=== PATIENT | female | born 1965 | race Caucasian/White ===

== ENCOUNTER → 2021-12-23 | Outpatient (CLI) | payer OTHER ==
[2021-12-23 17:43] LABS: BASOPHILS ABSOLUTE AUTO 0.06 K/mm3 (0.00-0.23); BASOPHILS PERCENT AUTO 1 % (0-2); EOSINOPHILS ABSOLUTE AUTO 0.14 K/mm3 (0.00-0.68); EOSINOPHILS PERCENT AUTO 2 % (0-6); Hematocrit 47.7 % (33.0-51.0); Hemoglobin 16.3 g/dL (11.5-16.0); IMMATURE GRAN ABSOLUTE AUTO 0.03 K/mm3 (0.00-0.10); IMMATURE GRAN PERCENT AUTO 0 % (0-1); LYMPHOCYTES ABSOLUTE AUTO 3.41 K/mm3 (0.84-5.20); LYMPHOCYTES PERCENT AUTO 38 % (21-46); MONOCYTES PERCENT AUTO 8 % (4-13); Mean Corpuscular HGB 30.8 pg (26.0-34.0); Mean Corpuscular HGB Conc 34.2 g/dL (31.5-36.5); Mean Corpuscular Volume 90 fL (80-100); Mean Platelet Volume 10.1 fL (9.1-12.4); NEUTROPHILS ABSOLUTE AUTO 4.62 K/mm3 (1.96-9.15); NEUTROPHILS PERCENT AUTO 52 % (41-73); Platelet Count 287 K/mm3 (150-400); RDW Coefficient Variation 11.9 % (11.7-14.2); Red Blood Cell Count 5.29 M/mm3 (3.80-5.20); White Blood Cell Count 8.96 K/mm3 (4.00-11.30)
[2021-12-23 18:13] LABS: Albumin, Blood 3.7 g/dL (3.4-5.0); Albumin/Globulin Ratio 1.1 (0.8-1.8); Bilirubin, Total 0.5 mg/dL (0.1-1.0); Bun/Creatinine Ratio 32.3 (12.0-20.0); Calcium, Blood 9.2 mg/dL (8.5-10.1); Creatinine, Blood 0.34 mg/dL (0.40-1.00); Globulin, Blood 3.5 g/dL (2.2-4.0); Potassium, Blood 3.8 mmol/L (3.5-5.5); Thyroid Stimulating Hormone 4.65 uIU/mL (0.360-4.800); Total Protein, Blood 7.2 g/dL (6.4-8.2)
== END | disposition home or self-care (01) ==
LOC: LAB SHORT 09:05 → LAB 09:05
PROVIDERS: Nurse Practitioner Family
DX: G47.00 Insomnia, unspecified (principal); M79.7 Fibromyalgia
CPT/HCPCS: 80053; 83036; 84443; 85025

== ENCOUNTER 2022-09-20 11:04 | Emergency (ER) | payer OTHER ==
[~2022-09-20] VITALS: Ht 162.6 cm; Wt 88.5 kg
== END 2022-09-20 12:38 | disposition home or self-care (01) ==
LOC: ER 11:04
DX: M25.512 Pain in left shoulder (principal); E11.9 Type 2 diabetes mellitus without complications
CPT/HCPCS: 99283

== ENCOUNTER 2023-06-01 12:46 | Emergency (ER) | payer OTHER ==
[~2023-06-01] VITALS: Ht 162.6 cm; Wt 86.2 kg
[2023-06-01 12:58] VITALS: BP 140/68
[2023-06-01 14:11] LABS: BASOPHILS ABSOLUTE AUTO 0.06 K/mm3 (0.00-0.23); BASOPHILS PERCENT AUTO 1 % (0-2); EOSINOPHILS ABSOLUTE AUTO 0.15 K/mm3 (0.00-0.68); EOSINOPHILS PERCENT AUTO 2 % (0-6); Hematocrit 44.5 % (33.0-51.0); Hemoglobin 15.2 g/dL (11.5-16.0); IMMATURE GRAN ABSOLUTE AUTO 0.07 K/mm3 (0.00-0.10); IMMATURE GRAN PERCENT AUTO 1 % (0-1); LYMPHOCYTES ABSOLUTE AUTO 2.81 K/mm3 (0.84-5.20); LYMPHOCYTES PERCENT AUTO 30 % (21-46); MONOCYTES PERCENT AUTO 8 % (4-13); Mean Corpuscular HGB 30.7 pg (26.0-34.0); Mean Corpuscular HGB Conc 34.2 g/dL (31.5-36.5); Mean Corpuscular Volume 90 fL (80-100); Mean Platelet Volume 10.1 fL (9.1-12.4); NEUTROPHILS ABSOLUTE AUTO 5.47 K/mm3 (1.96-9.15); NEUTROPHILS PERCENT AUTO 59 % (41-73); Platelet Count 270 K/mm3 (150-400); RDW Standard Deviation 39.4 fL (35.1-46.3); Red Blood Cell Count 4.95 M/mm3 (3.80-5.20); White Blood Cell Count 9.26 K/mm3 (4.00-11.30)
[2023-06-01 14:22] LABS: Albumin, Blood 3.2 g/dL (3.4-5.0); Albumin/Globulin Ratio 0.8 (0.8-1.8); Bilirubin, Total 0.6 mg/dL (0.1-1.0); Creatinine, Blood 0.57 mg/dL (0.40-1.00); Globulin, Blood 3.8 g/dL (2.2-4.0); Potassium, Blood 4.3 mmol/L (3.5-5.5)
== END 2023-06-01 16:28 | disposition left against medical advice (07) ==
LOC: ER 12:46
PROVIDERS: Student in an Organized Health Care Education/Training Program
DX: R11.2 Nausea with vomiting, unspecified (principal); R10.9 Unspecified abdominal pain; Z53.29 Procedure and treatment not carried out because of patient's decision for other reasons
CPT/HCPCS: 74018; 80053; 83690; 85025; 99282-25

== ENCOUNTER 2023-06-27 19:52 | Emergency (ER) | payer OTHER ==
[~2023-06-27] VITALS: Ht 162.6 cm; Wt 102.1 kg
[2023-06-27 20:36] LABS: BASOPHILS ABSOLUTE AUTO 0.06 K/mm3 (0.00-0.23); BASOPHILS PERCENT AUTO 0 % (0-2); EOSINOPHILS ABSOLUTE AUTO 0.24 K/mm3 (0.00-0.68); EOSINOPHILS PERCENT AUTO 2 % (0-6); Hematocrit 47.6 % (33.0-51.0); Hemoglobin 15.9 g/dL (11.5-16.0); IMMATURE GRAN ABSOLUTE AUTO 0.26 K/mm3 (0.00-0.10); IMMATURE GRAN PERCENT AUTO 2 % (0-1); LYMPHOCYTES ABSOLUTE AUTO 1.63 K/mm3 (0.84-5.20); LYMPHOCYTES PERCENT AUTO 11 % (21-46); MONOCYTES ABSOLUTE AUTO 1.08 K/mm3 (0.16-1.47); MONOCYTES PERCENT AUTO 7 % (4-13); Mean Corpuscular HGB 29.2 pg (26.0-34.0); Mean Corpuscular HGB Conc 33.4 g/dL (31.5-36.5); Mean Corpuscular Volume 87 fL (80-100); Mean Platelet Volume 9.6 fL (9.1-12.4); NEUTROPHILS ABSOLUTE AUTO 11.43 K/mm3 (1.96-9.15); NEUTROPHILS PERCENT AUTO 78 % (41-73); Platelet Count 303 K/mm3 (150-400); RDW Coefficient Variation 12.4 % (11.7-14.2); RDW Standard Deviation 39.4 fL (35.1-46.3); Red Blood Cell Count 5.45 M/mm3 (3.80-5.20)
[2023-06-27 20:56] LABS: Albumin, Blood 2.7 g/dL (3.4-5.0); Albumin/Globulin Ratio 0.6 (0.8-1.8); Bilirubin, Total 0.8 mg/dL (0.1-1.0); Bun/Creatinine Ratio 26.8 (12.0-20.0); Calcium, Blood 9.5 mg/dL (8.5-10.1); Creatinine, Blood 0.56 mg/dL (0.40-1.00); Globulin, Blood 4.7 g/dL (2.2-4.0); Potassium, Blood 4.6 mmol/L (3.5-5.5); Total Protein, Blood 7.4 g/dL (6.4-8.2)
[2023-06-27 22:22] LABS: Magnesium, Blood 1.9 mg/dL (1.6-2.4)
[2023-06-27 22:59] LABS: Source, Urine Clean Catch
[2023-06-27 23:02] LABS: Blood, Urine Neg (Neg); Glucose Qualitative, Urine 2+ (Neg); Ketones, Urine 4+ (Neg); Leukocyte Esterase, Urine 1+ (Neg); Nitrite, Urine Neg (Neg); Protein, Urine 2+ (Neg); Specific Gravity, Urine 1.025 (1.003-1.022); Urobilinogen, Urine 3+ (Normal)
[2023-06-27 23:09] LABS: Appearance, Urine Hazy (Clear); Bilirubin, Urine 2+ (Neg); Color, Urine Yellow (P-Yellow)
[2023-06-27 23:10] LABS: Amorphous Light (0-Heavy); Bacteria Mod /hpf; Red Blood Cells, Urine 0-2 /hpf (0-2); Squamous Epithelial Cells Mod /hpf (Few)
[2023-06-28] MEDS ORDERED: CEPH500 PO (01:04)
[2023-06-28] MEDS ORDERED: OXAYDO5 M1 PO (01:04)
[2023-06-28 01:16] VITALS: BP 136/64
== END 2023-06-28 01:31 | disposition home or self-care (01) ==
LOC: ER 19:52
PROVIDERS: Student in an Organized Health Care Education/Training Program
DX: C80.1 Malignant (primary) neoplasm, unspecified (principal); C78.7 Secondary malignant neoplasm of liver and intrahepatic bile duct; N39.0 Urinary tract infection, site not specified; R11.2 Nausea with vomiting, unspecified; K59.00 Constipation, unspecified; E86.0 Dehydration; D72.829 Elevated white blood cell count, unspecified; E11.9 Type 2 diabetes mellitus without complications
CPT/HCPCS: 80053; 81001; 83690; 83735; 85025; 87086; 96361; 96365; 96375; 99284-25; A9270; J0696; J1170; J2405; J3010; J7030

== ENCOUNTER 2023-07-01 11:40 | Inpatient (IN) | payer OTHER ==
[~2023-07-01] VITALS: Ht 162.6 cm; Wt 93.3 kg
[~2023-07-01 11:40] MED LIST: CEPH500 PO; OXAYDO5 M1 PO
[2023-07-01 12:04] LABS: BASOPHILS ABSOLUTE AUTO 0.08 K/mm3 (0.00-0.23); BASOPHILS PERCENT AUTO 0 % (0-2); EOSINOPHILS ABSOLUTE AUTO 0.01 K/mm3 (0.00-0.68); EOSINOPHILS PERCENT AUTO 0 % (0-6); Hematocrit 47.6 % (33.0-51.0); IMMATURE GRAN ABSOLUTE AUTO 0.68 K/mm3 (0.00-0.10); IMMATURE GRAN PERCENT AUTO 3 % (0-1); LYMPHOCYTES ABSOLUTE AUTO 1.82 K/mm3 (0.84-5.20); LYMPHOCYTES PERCENT AUTO 7 % (21-46); MONOCYTES ABSOLUTE AUTO 1.54 K/mm3 (0.16-1.47); MONOCYTES PERCENT AUTO 6 % (4-13); Mean Corpuscular HGB 29.4 pg (26.0-34.0); Mean Corpuscular HGB Conc 33.6 g/dL (31.5-36.5); Mean Corpuscular Volume 88 fL (80-100); Mean Platelet Volume 10.6 fL (9.1-12.4); NEUTROPHILS ABSOLUTE AUTO 21.93 K/mm3 (1.96-9.15); NEUTROPHILS PERCENT AUTO 84 % (41-73); NRBC ABSOLUTE 0.03 K/mm3 (0.00-0.02); NRBC Auto 0.1 /100 WBC (0.0-0.2); Platelet Count 233 K/mm3 (150-400); RDW Coefficient Variation 12.8 % (11.7-14.2); RDW Standard Deviation 39.8 fL (35.1-46.3); Red Blood Cell Count 5.44 M/mm3 (3.80-5.20); White Blood Cell Count 26.06 K/mm3 (4.00-11.30)
[2023-07-01 12:29] LABS: Albumin, Blood 2.6 g/dL (3.4-5.0); Albumin/Globulin Ratio 0.6 (0.8-1.8); Bilirubin, Total 0.7 mg/dL (0.1-1.0); Bun/Creatinine Ratio 27.8 (12.0-20.0); Calcium, Blood 9.1 mg/dL (8.5-10.1); Creatinine, Blood 1.26 mg/dL (0.40-1.00); Globulin, Blood 4.5 g/dL (2.2-4.0); Potassium, Blood 4.2 mmol/L (3.5-5.5); Total Protein, Blood 7.1 g/dL (6.4-8.2)
[2023-07-01 12:44] LABS: Influenza A, PCR NEGATIVE (NEGATIVE); Influenza B, PCR NEGATIVE (NEGATIVE); Resp Syncytial Virus, PCR NEGATIVE (NEGATIVE); SARS-Cov-2 (COVID-19) PCR, MMC NEGATIVE (NEGATIVE)
[2023-07-01 14:41] LABS: Base Excess Venous -8.5 mmol/L; Bicarbonate Venous 18.2 mmol/L (24.0-30.0); PCO2 Venous 34.2 mmHg (38-42); pH Blood Venous 7.32 (7.34-7.37)
[2023-07-01 16:48] LABS: Glucose, Blood 644 mg/dL (70-99)
--- NOTE | 2023-07-01 18:22 | NUR ---
SHIFT SUMMARY: ASSUMED CARE OF PATIENT UPON HER ARRIVAL FROM ED AT 1550. WAS GIVEN DILAUDID PRIOR TO ARRIVAL IN PCU SO IS A BIT LETHARGIC, IS AROUSEABLE TO SPEECH. CBG CHECKED JUST AFTER ARRIVAL, WAS >500; RE-CHECK BY LAB WAS 644. DR. GOMEZ NOTIFIED, ORDER RECEIVED FOR EXTRA 15 UNITS OF GLARGINE INSULIN. PT STATED PAIN IS "OK AT THE MOMENT." WAS PLACED ON O2 @ 2 L/MIN NC BY ED RN AFTER DILAUDID, RR ON ARRIVAL WAS 13. TELEMETRY SHOWS SINUS TACH AT 110. IVF INFUSING. SPOUSE AND SON AT BEDSIDE. SPOKE TO PALLIATIVE CARE RN Joe BERKOWITZ, ASKED HIM TO CHECK IN WITH PATIENT AND FAMILY PT HAS NEW CANCER DIAGNOSIS.
[2023-07-01 18:24] LABS: Potassium, Blood 3.7 mmol/L (3.5-5.5)
[2023-07-01 20:39] LABS: Glucose, Blood 578 mg/dL (70-99)
[2023-07-01 21:15] VITALS: BP 130/70
[2023-07-02] VITALS (7 sets, daily range): BP systolic 129–145; BP diastolic 65–76
[2023-07-02 00:25] LABS: Glucose, Blood 548 mg/dL (70-99)
[2023-07-02 04:10] LABS: Hematocrit 42.5 % (33.0-51.0); Hemoglobin 14.4 g/dL (11.5-16.0); Mean Corpuscular HGB 29.1 pg (26.0-34.0); Mean Corpuscular HGB Conc 33.9 g/dL (31.5-36.5); Mean Corpuscular Volume 86 fL (80-100); Mean Platelet Volume 10.2 fL (9.1-12.4); NRBC ABSOLUTE 0.02 K/mm3 (0.00-0.02); NRBC Auto 0.1 /100 WBC (0.0-0.2); Platelet Count 165 K/mm3 (150-400); RDW Coefficient Variation 12.5 % (11.7-14.2); RDW Standard Deviation 39.1 fL (35.1-46.3); Red Blood Cell Count 4.94 M/mm3 (3.80-5.20); White Blood Cell Count 21.89 K/mm3 (4.00-11.30)
[2023-07-02 04:42] LABS: Bun/Creatinine Ratio 39.8 (12.0-20.0); Calcium, Blood 8.5 mg/dL (8.5-10.1); Creatinine, Blood 1.08 mg/dL (0.40-1.00); Potassium, Blood 3.3 mmol/L (3.5-5.5)
--- NOTE | 2023-07-02 06:25 | NUR ---
SHIFT SUMMARY PT IS HERE WITH N/V, HYPERGLYCEMIA, AND AN LORE. BLOOD GLUCOSE CHECKED Q4H THIS SHIFT AND RESULTS CALLED TO THE PROVIDER EACH TIME FOR ADDITIONAL INSTRUCTION. AT 0000 AND 0400, AN ADDITIONAL 5 UNITS OF SHORT ACTING INSULIN WAS ORDERED TO ASSIST IN BRINGING DOWN THE PT'S BLOOD SUGAR. PT HAS BEEN NAUSEOUS AND HAS VOMITED TWICE THIS SHIFT, THE SECOND TIME OCCURRING AT 0620 THIS AM WITH 400 ML OF EMESIS. BOTH ZOFRAN AND REGLAN GIVEN THIS SHIFT, BUT PT STILL HAS BOUTS OF NAUSEA W/EMESIS REGARDLESS. PT'S OXYGEN SATURATION DECREASED DURING THE CLINICAL RESEARCH ADMINISTRATOR (LOW TO MID 80'S) AND NALINI WITH RT WAS ASKED TO COME AND ASSESS THE PT. NALINI W/RT STATED THE PT'S LUNGS SOUNDED CRACKLY AND ASKED TO REPOSITION THE PT WELL PROVIDE AN IS. PT'S O2 SATS DID IMPROVE AFTER REPOSITIONING THE PT (LOW 90'S) AND LOWERING THE BED TO ALLOW FOR BETTER BREATHING. HOWEVER, USING THE IS DID MAKE THE PT COUGH AND GAG. IV FLUIDS WERE STOPPED BY THIS RN FOR THE TIME BEING AND THIS RN SPOKE WITH SUHAS BRADY ABOUT THE PT'S CONDITION. THIS RN CONTACTED DR. SALAZAR AND REQUESTED A CXR ONE HAD NOT YET BEEN PERFORMED. RESULTS ARE PENDING. PT'S PAIN MEDICATED PER EMAR AND ASIDE FROM HER O2 SATURATION, HER VITAL SIGNS HAVE BEEN STABLE. PT ABLE TO STAND AND PIVOT TO THE BEDSIDE COMMODE, BUT PT HAS HAD MINIMAL URINE OUTPUT THIS SHIFT. BED IS IN LOWEST POSITION, CALL LIGHT IS WITHIN REACH.
--- NOTE | 2023-07-02 12:57 | NUR ---
Brief supportive visit this afternoon to establish rapport. Pt resting in bed upon arrival. Pt's son, daughter in law, and grandchildren at bedside. Pt reporting 7/10 pain in her back and is having some mild nausea. Brief review of plan of care. Pt and family express appreciation. Spoke with Primary RN Anu and relayed Pt's pain and nausea. Palliative Care will remain available
--- NOTE | 2023-07-02 18:18 | NUR ---
SHIFT SUMMARY PT IS VERY DROWSY BUT RESPONDS TO VERBAL STIMULI AND IS ORIENTED X4. SHE HAS HAD HER SON AND [id number] AT THE BEDSIDE ALL DAY AND THEY HAVE BEEN VERY HELPFUL WITH CARE. THEY HAVE BEEN HELPING WITH ORAL CARE, TURNS, POSITIONING, HELPING WITH EXPRESSING THE PT'S NEEDS THE PT HAS HAD NAUSEA AND VOMITING ALL DAY AND HAS BEEN MEDICATED PER EMAR. SHE AHS HAD PAIN IN HER BACK, ABD, AND THROAT, WHICH SHE HAS RECIEVED DILAUDID 0.5MG TWICE THIS SHIFT. TO HELP W/ HYDRATION THE PT IS RECIEVING NS AT 75ML'S/HR. OVERNIGHT THEY WERE CONCERNED W/ FLUID OVERLOAD SO HER FLUIDS WERE STOPPED ABOUT 0500 AND RESUMED THIS AFTERNOON. SHE HAS SUGAR FREE POPSICLES IN THE FRIDGE THAT SHE HAS BEEN ABLE TO TOLERATE AT TIMES. THE PT HAS BEEN TITRATED DOWN FROM 4L NC TO 2L NC. SP02 >90% W/ ACTIVITY HER SP02 DOES DROP SLIGHTLY BUT SHE DOES RECOVER AFTER ABOTU A MINUTE. ON TELE SHE IS SR/ST 90'S-100'S. SHE IS A 1P SBA TO THE CHAIR OR BSC. PT WAS CHANGED TO A Q6 CBG. BLOOD SUGARS IN THE 200'S. WE WILL BE REEVALUATING HER SWALLOW TOMORROW AND DR. GOMEZ HAS TALKED ABOUT FINDIND GI AT ANOTHER HOSPITAL IF THERE ARE NO IMPROVMENTS. THE PT WAS STARTED ON PROTONIX THIS SHIFT. SEE NOTES FOR ANY UPDATES.
--- NOTE | 2023-07-02 21:13 | NUR ---
ASSUMPTION OF CARE NOTE AFTER RECEIVING REPORT FROM FAHAD DENNY, THIS RN ASSUMED CARE AT APPROX 1915. PATIENT SLEEPING DURING INITIAL ENCOUNTER, EASILY AROUSABLE TO VERBAL STIMULI. REMAINS DROWSY, LETHARGIC. FAMILY AT BEDSIDE ASSISTING WITH CARE NEEDED. PATIENT IS ABLE TO AMBULATE TO BEDSIDE COMMODE WITH 1P STAND BY ASSIST. IS CURRENTLY SITTING IN RECLINER CHAIR. EGG CRATE MATTRESS PAD PLACED ON BED FOR INCREASED COMFORT. VSS. TELEMETRY SHOWING SINUS TACH 90's-100's. BP STABLE. DENIES CHEST PAIN OR PRESSURE. IS CURRENTLY ON 2L VIA NASAL CANNULA, SATS >92%. IS ABLE TO AMBULATE WITHOUT ADDITIONAL SUPPLEMENTAL OXYGEN. DOES EXPERIENCE DYSPNEA WITH MOBILITY, ABLE TO RECOVER WITH REST. REPORTS MILD NAUSEA AT THIS TIME, IS ABLE TO TOLERATE A POPSICLE AND ICE CHIPS. VOIDING DARK JAVIER URINE. CALL LIGHT IN REACH.
--- NOTE | 2023-07-03 02:44 | NUR ---
0009 - SPOKE WITH DR. PARIKH REGARDING PT WITH INCREASING PAIN AND NAUSEA. NO PRNS AVAILABLE. RECEIVED ORDER FOR INCREASE IN IV PAIN MEDICATIONS AND DIFFERENT IV NAUSEA MEDICATION. SEE EMAR FOR DETAILS. PRIMARY RN FRITZ DEL CID.
[2023-07-03 03:53] VITALS: BP 115/84
[2023-07-03 04:15] LABS: Hematocrit 44.4 % (33.0-51.0); Hemoglobin 14.7 g/dL (11.5-16.0); Mean Corpuscular HGB 29.3 pg (26.0-34.0); Mean Corpuscular HGB Conc 33.1 g/dL (31.5-36.5); Mean Corpuscular Volume 88 fL (80-100); Mean Platelet Volume 10.4 fL (9.1-12.4); NRBC ABSOLUTE 0.02 K/mm3 (0.00-0.02); NRBC Auto 0.1 /100 WBC (0.0-0.2); Platelet Count 132 K/mm3 (150-400); RDW Coefficient Variation 12.8 % (11.7-14.2); RDW Standard Deviation 41.2 fL (35.1-46.3); Red Blood Cell Count 5.02 M/mm3 (3.80-5.20); White Blood Cell Count 16.22 K/mm3 (4.00-11.30)
[2023-07-03 04:40] LABS: Anion Gap 7 mmol/L (6-16); Blood Urea Nitrogen 41 mg/dL (8-24); Bun/Creatinine Ratio 48.3 (12.0-20.0); CO2, Blood 30 mmol/L (21-32); Calcium, Blood 8.3 mg/dL (8.5-10.1); Chloride, Blood 99 mmol/L (98-108); Creatinine, Blood 0.85 mg/dL (0.40-1.00); Glomerular Filtration Rate 79 (60-); Glucose, Blood 279 mg/dL (70-99); Magnesium, Blood 2.6 mg/dL (1.6-2.4); Phosphorus, Blood 2.8 mg/dL (2.5-4.9); Potassium, Blood 3.6 mmol/L (3.5-5.5); Sodium, Blood 136 mmol/L (136-145)
--- NOTE | 2023-07-03 05:58 | NUR ---
SHIFT SUMMARY NO ACUTE CHANGES SINCE PREVIOUS ASSUMPTION OF CARE. PATIENT ABLE TO SLEEP INTERMITTENTLY THROUGHOUT SHIFT. X1 EPISODE OF NAUSEA/VOMITING. DARK BROWN EMESIS NOTED BY MATT PCT. THIS RN ADMINISTERED IV ZOFRAN UNABLE TO ADMINISTER IV REGLAN W/ NO RELIEF. JOYCE DENNY CONTACTED MD FOR INCREASED PAIN AND NAUSEA. RECEIVED ORDER TO CHANGE IV DILAUDID TO EVERY TWO HOURS AND FOR COMPAZINE. NO FURTHER EPISODES OF NAUSEA/VOMITING SINCE COMPAZINE ADMINISTRATION. MANAGING 8/10 BACK PAIN PER EMAR WITH IV DILAUDID. ABLE TO TOLERATE SOME ICE CHIPS AND POPSICLES. TELEMETRY SHOWING SINUS TACH 100's. BP STABLE. ON 2L VIA NASAL CANNULA, SATS >92%. TACHYPNEIC WITH MOBILITY. IS A 1 PERSON/STAND BY ASSIST TO BEDSIDE COMMODE OR CHAIR. VOIDING DARK JAVIER URINE. DID REPORT SOME BURNING WITH URINATION THIS MORNING. FAMILY AT BEDSIDE ASSISTING WITH CARE. CALL LIGHT IN REACH. WILL REPORT TO ONCOMING RN.
[2023-07-03 07:55] VITALS: BP 133/73
[2023-07-03 11:06] VITALS: BP 133/73
--- NOTE | 2023-07-03 11:59 | NUR ---
UPDATE PT ALERT AND ORIENTED. VS STABLE. O2 SATS HAVE REMAINED ABOVE 90% ON 2L NC. PT COMPLAINS OF PAIN TO HER RIGHT MID BACK AND MEDICATED PER EMAR. PT HAS BEEN NAUSEOUS MOST OF SHIFT, AND ONE EPISODE OF EMESIS NOTED. PT MEDICATED FOR NAUSEA PER EMAR. PT ABLE TO STAND AND TRANSFER TO BSC NEEDED TO VOID WITH SBA. PT TO BE [place] TRANSFERRED TO [facility] FOR GI CONSULTATION. BED ASSIGNMENT PROVIDED AND PT AWAITING TRANSPORTATION. REPORT CALLED TO AVANI DENNY AT [facility]
== END 2023-07-03 12:44 | disposition short-term general hospital (02) | DRG 637 ==
LOC: ER 11:40 → PCU 15:12
PROVIDERS: Emergency Medicine; ADMIT Internal Medicine
DX: E11.10 Type 2 diabetes mellitus with ketoacidosis without coma (principal); J18.9 Pneumonia, unspecified organism; J96.01 Acute respiratory failure with hypoxia; N17.9 Acute kidney failure, unspecified; C79.51 Secondary malignant neoplasm of bone; C78.7 Secondary malignant neoplasm of liver and intrahepatic bile duct; E87.1 Hypo-osmolality and hyponatremia; R13.10 Dysphagia, unspecified; E86.0 Dehydration; C80.1 Malignant (primary) neoplasm, unspecified; E87.6 Hypokalemia; Z11.52 Encounter for screening for COVID-19
CPT/HCPCS: 0241U; 36415; 71045; 74018; 80048; 80051; 80053; 80069; 82010; 82803; 82947; 83036; 83690; 83735; 83880; 84145; 85025; 85027; 94762; 96374; 96375; 99285-25; A9270; C9113; J0696; J0780; J1170; J1650; J1790; J1815; J2405; J2765; J3480; J7030; J7050